=== PATIENT | female | born 1960 | race Caucasian/White ===

== ENCOUNTER → 2016-09-15 | Outpatient (CLI) | payer BC | LOC: MMGSC 11:39 | PROVIDERS: ATTEND Family Medicine | DX: E03.9 Hypothyroidism, unspecified (principal) | CPT/HCPCS: 36415; 84439; 84443 ==

== ENCOUNTER → 2016-11-08 | Outpatient (CLI) | payer BC | END | disposition home or self-care (01) | LOC: MMGSC 11:41 | PROVIDERS: ATTEND Family Medicine | DX: E03.9 Hypothyroidism, unspecified (principal) | CPT/HCPCS: 36415; 84439; 84443 ==

== ENCOUNTER → 2017-05-04 | Outpatient (CLI) | payer BC, MEDICAID ==
[2017-05-04 19:52] LABS: Basophils # (A) 0.1 k/uL (0-0.2); Basophils % (A) 1 %; CH 29.7; CHCM 33.1; Eosinophils # (A) 0.3 k/uL (0-0.7); Eosinophils % (A) 4 %; HCT 42.4 % (34.0-46.0); HDW 2.24; Luc % (Auto) 3; Lymphocytes # (A) 1.4 k/uL (1.0-4.8); Lymphocytes % (A) 19 %; MCH 29.9 pg (25.0-35.0); MCHC 33.1 g/dL (31.0-37.0); MCV 90.2 fL (80.0-100.0); Mean Platelet Volume 9.2; Monocytes # (A) 0.6 k/uL (0-1.0); Monocytes % (A) 7 %; Neutrophils % (A) 67 %; RDW 13.8 % (11.5-15.5); WBC 7.5 k/uL (3.8-10.6); WBC (Perox) 7.64
[2017-05-04 20:30] LABS: ALT 42 U/L (9-52); AST 38 U/L (14-36); Alkaline Phosphatase 61 U/L (38-126); Anion Gap 6 mmol/L; Blood Urea Nitrogen 23 mg/dL (7-17); Calcium 9.7 mg/dL (8.4-10.2); Carbon Dioxide 29 mmol/L (22-30); Chloride 104 mmol/L (98-107); Cholesterol 224 mg/dL (<200); Glucose 77 mg/dL (74-99); HDL Cholesterol 73 mg/dL (40-60); Non-African American GFR(MDRD) >60 (>60 ml/min/1.73 sqM); Potassium 4.4 mmol/L (3.5-5.1); Sodium 139 mmol/L (137-145); Total Bilirubin 0.3 mg/dL (0.2-1.3); Total Protein 6.9 g/dL (6.3-8.2)
== END ==
LOC: MMGSC 15:17
PROVIDERS: ATTEND Family Medicine
DX: E03.9 Hypothyroidism, unspecified (principal)
CPT/HCPCS: 36415; 80053; 80061; 84439; 84443; 85025

== ENCOUNTER → 2017-06-28 | Outpatient (CLI) | payer MEDICAID ==
--- NOTE | 2017-06-29 07:53 | MM ---
Reason for exam: screening (asymptomatic). Last mammogram was performed 1 year and 3 months ago. History: Patient is postmenopausal and is nulliparous. Family history of premenopausal breast cancer in aunt at age 40. Took estrogen for 1 year beginning at age 46. Physical Findings: A clinical breast exam by your physician is recommended on an annual basis and results should be correlated with mammographic findings. MG Screening Mammo w CAD Bilateral CC and MLO view(s) were taken. Prior study comparison: March 25, 2016, bilateral MG screening mammo w CAD. September 11, 2015, left breast MG 3d diag mammo w/cad LT. There are scattered fibroglandular densities. No significant changes when compared with prior studies. ASSESSMENT: Benign, BI-RAD 2 RECOMMENDATION: Routine screening mammogram of both breasts in 1 year.
== END | disposition home or self-care (01) ==
LOC: RADMAMWWP 06:57
PROVIDERS: ATTEND Family Medicine
DX: Z12.31 Encounter for screening mammogram for malignant neoplasm of breast (principal)
CPT/HCPCS: 77067

== ENCOUNTER → 2017-07-06 | Outpatient (CLI) | payer MEDICAID ==
[2017-07-07 01:08] LABS: Hepatitis A Antibody IgM Non-Reactive (Non-Reactive); Hepatitis B Core IgM Non-Reactive (Non-Reactive)
[2017-07-07 02:09] LABS: HIV AB P24 Non-Reactive (Non-Reactive); HIV P24 AG Non-Reactive (Non-Reactive)
[2017-07-09 09:18] LABS: C. trachomatis,PCR Negative (Neg,Equiv); Chlamydia trachomatis Source Vagina; N. gonorrhoeae,PCR Negative (Neg,Equiv); Neisseria Source Vagina
== END | disposition home or self-care (01) ==
LOC: MMGSC 14:46
PROVIDERS: ATTEND Family Medicine
DX: N39.0 Urinary tract infection, site not specified (principal); Z20.2 Contact with and (suspected) exposure to infections with a predominantly sexual mode of transmission
CPT/HCPCS: 36415; 80074; 86780; 87070; 87086; 87205; 87390; 87491; 87591

== ENCOUNTER → 2018-09-13 | Outpatient (CLI) | payer MEDICAID ==
--- NOTE | 2018-09-14 11:40 | MM ---
Reason for exam: screening (asymptomatic). Last mammogram was performed 1 year and 3 months ago. History: Patient is postmenopausal and is nulliparous. Family history of premenopausal breast cancer in aunt at age 40. Took estrogen for 1 year beginning at age 46. Physical Findings: A clinical breast exam by your physician is recommended on an annual basis and results should be correlated with mammographic findings. MG Screening Mammo w CAD Bilateral CC and MLO view(s) were taken. Prior study comparison: June 28, 2017, bilateral MG screening mammo w CAD. March 25, 2016, bilateral MG screening mammo w CAD. The breast tissue is heterogeneously dense. This may lower the sensitivity of mammography. Stable benign calcifications. There is no discrete abnormality. No significant changes when compared with prior studies. ASSESSMENT: Benign, BI-RAD 2 RECOMMENDATION: Routine screening mammogram of both breasts in 1 year.
== END ==
LOC: RADMAMWWP 08:13
PROVIDERS: ATTEND Family Medicine
DX: Z12.31 Encounter for screening mammogram for malignant neoplasm of breast (principal)
CPT/HCPCS: 77067

== ENCOUNTER → 2018-10-19 | Outpatient (CLI) | payer MEDICAID ==
--- NOTE | 2018-10-19 08:47 | MR ---
EXAMINATION TYPE: MR lumbar spine wo con DATE OF EXAM: 10/19/2018 COMPARISON: None HISTORY: Low back pain TECHNIQUE: Multiplanar, multisequence images of the lumbar spine were acquired. L1-L2: There is facet arthropathy change present causing some minimal posterior mass effect on the th ecal sac greater on the left. Circumferential extension of endplate disc complex results in left-side d foraminal encroachment greater than right. There is mild central stenosis. L2-L3: Posterior broad-based disc bulge causes mild anterior mass effect on the thecal sac. Facet art hropathy with hypertrophy ligamentum flavum causes some posterior lateral mass effect on the thecal s ac, circumferential extension of endplate disc complex encroaches on the neural foramen greater on th e left likely contributed by the spinal curvature. L3-L4: Posterior broad-based disc bulge causes slight anterior mass effect on the thecal sac. There i s facet arthropathy with hypertrophy of ligamentum flavum causing some minimal posterior lateral mass effect on the thecal sac. No significant foraminal encroachment or central stenosis. L4-L5: Facet arthropathy with hypertrophy of the ligamentum flavum combined with circumferential post erior extension endplate disc complex results in a trefoil appearance of the thecal sac. Lateral exte nsion endplate disc complex towards the right causes foraminal encroachment. No significant central s tenosis. L5-S1: Circumferential extension of endplate disc complex towards the right causes some foraminal enc roachment greater than the left, suspect there is a lateral disc protrusion towards the right, circum ferential posterior extension endplate disc complex causes only minimal anterior mass effect on the t hecal sac. No significant central stenosis. There is some facet arthropathy with hypertrophy ligament um flavum causing some posterior lateral mass effect on the thecal sac. Lumbar segments are intact. No paraspinal masses are identified. Conus medullaris has a normal appe arance. Lumbar vertebral bodies show preserved height, there is multilevel spondylosis with endplate discogenic marrow signal change, multilevel loss of disc height and signal especially L1-2 and to les ser extent L2-3, L4-5 and L5-S1. There is a scoliotic curvature present. IMPRESSION: Degenerative disc disease, facet arthropathy, scoliosis, multilevel foraminal encroachment as describ ed.
== END | disposition home or self-care (01) ==
LOC: RADMRIMAIN 06:40
PROVIDERS: ATTEND Orthopaedic Surgery
DX: M48.061 Spinal stenosis, lumbar region without neurogenic claudication (principal); M51.36 Other intervertebral disc degeneration, lumbar region; M46.96 Unspecified inflammatory spondylopathy, lumbar region; M41.9 Scoliosis, unspecified
CPT/HCPCS: 72148

== ENCOUNTER → 2019-05-31 | Outpatient (CLI) | payer MEDICAID ==
[2019-05-31 08:29] LABS: Basophils # (A) 0.1 k/uL (0-0.2); Basophils % (A) 1 %; Eosinophils # (A) 0.2 k/uL (0-0.7); Eosinophils % (A) 4 %; HCT 41.7 % (34.0-46.0); Lymphocytes # (A) 1.3 k/uL (1.0-4.8); Lymphocytes % (A) 24 %; MCH 30.7 pg (25.0-35.0); MCHC 33.7 g/dL (31.0-37.0); MCV 91.1 fL (80.0-100.0); Mean Platelet Volume 8.5; Monocytes # (A) 0.5 k/uL (0-1.0); Monocytes % (A) 10 %; Neutrophils # (A) 3.2 k/uL (1.3-7.7); Neutrophils % (A) 59 %; Platelet Count 215 k/uL (150-450); RBC 4.57 m/uL (3.80-5.40); RDW 12.5 % (11.5-15.5); WBC 5.4 k/uL (3.8-10.6)
[2019-05-31 08:41] LABS: Appearance,Urine Clear (Clear); Bilirubin,Urine Negative (Negative); Blood,Urine Small (Negative); Color,Urine Light Yellow; Glucose,Urine (UA) Negative (Negative); Ketones,Urine Negative (Negative); Leukocyte Esterase,Urine Negative (Negative); Mucus,Urine Rare /hpf; Nitrite,Urine Negative (Negative); PH, Urine 5.5 (5.0-8.0); Protein,Urine Negative (Negative); RBC,Urine 1 /hpf (0-5); Specific Gravity,Urine 1.005 (1.001-1.035); Urobilinogen,Urine <2.0 mg/dL (<2.0); WBC,Urine 1 /hpf (0-5)
[2019-05-31 09:50] LABS: Erythrocyte Sedimentation Rate 11 mm/hr (0-20)
[2019-05-31 16:59] LABS: Protein, Total 6.6 g/dL (6.2-8.2)
[2019-05-31 17:05] LABS: ALT 30 U/L (8-44); AST 35 U/L (13-35); African American GFR (CKD) 94.2 (60.0-200.0); Alkaline Phosphatase 70 U/L (41-126); C Reactive Protein <0.4 mg/dL (0.0-0.8); Calcium 9.3 mg/dL (8.7-10.3); Chloride 105 mmol/L (96-109); Creatine Kinase 268 U/L (26-186); Globulin 2.2 g/dL (1.6-3.3); Glucose 89 mg/dL (70-110); Non-African American GFR(CKD) 81.3 (60.0-200.0); Rheumatoid Factor, Qnt 10 IU/mL (0-15); Sodium 140 mmol/L (135-145); Total Bilirubin 0.5 mg/dL (0.3-1.2); Total Protein 6.6 g/dL (6.2-8.2); Uric Acid 5.6 mg/dL (2.9-7.7)
[2019-05-31 17:16] LABS: Hepatitis B Surface Antigen Non-Reactive (Non-Reactive); Hepatitis C IgG Antibody Non-Reactive (Non-Reactive)
[2019-05-31 19:19] LABS: Anti-DNA, DS unit <1.0 IU/mL; Anti-Smith Ab Interp NEGATIVE (NEGATIVE); Cardiolipin Ab IgG Interp NEGATIVE (NEGATIVE); Cardiolipin Ab IgM Interp NEGATIVE (NEGATIVE); Cardiolipin IgA Antibody 4.4 U/mL; Cardiolipin IgM Antibody 6.1 U/mL; Centromere Antibody <0.2 AI; Centromere Antibody Interp NEGATIVE (NEGATIVE); Cyclic Citrull Pep IgG Unit <0.5 U/mL; Cyclic Citrullinated Pep IgG NEGATIVE (NEGATIVE); DNA Double-Stranded NEGATIVE (NEGATIVE); Scleroderma SC-70 Ab <0.2 AI
[2019-06-01 10:59] LABS: Free Kappa Lt Chain Qnt, Serum 1.75 mg/dL (0.33-1.94)
[2019-06-01 11:51] LABS: Angiotensin-1 Converting Enz. 27 U/L (8-52)
[2019-06-01 13:17] LABS: HLA B27 NEGATIVE
[2019-06-03 12:29] LABS: ANA Pattern Homogeneous
[2019-06-03 12:54] LABS: APTT 40 Sec(s) (<43); DRVVT 1:1 Mix 39 Sec(s) (<44); Dilute Russell Viper Venom 45 Sec(s) (<44)
[2019-06-03 13:16] LABS: Histone Antibody 0.6 UNITS (<1.0)
[2019-06-03 13:36] LABS: Albumin 4.03 g/dL (3.80-4.90); Gamma Globulin 0.98 g/dL (0.70-1.50)
[2019-06-03 15:49] LABS: C-ANCA <1:20 Titer (<1:20)
== END | disposition home or self-care (01) ==
LOC: LABWHC1 07:35
PROVIDERS: ATTEND Internal Medicine Rheumatology
DX: M54.5 Low back pain (principal); R76.8 Other specified abnormal immunological findings in serum
CPT/HCPCS: 36415; 80053; 81001; 82088; 82164; 82306; 82550; 83516; 83883; 84165; 84439; 84443; 84550; 85025; 85613; 85652; 85730; 86038; 86039; 86140; 86147; 86160; 86162; 86200; 86225; 86235; 86255; 86334; 86431; 86803; 86812; 87340

== ENCOUNTER → 2019-12-12 | Outpatient (CLI) | payer MEDICAID ==
--- NOTE | 2019-12-16 10:16 | MM ---
Reason for exam: screening (asymptomatic). Last mammogram was performed 1 year and 3 months ago. History: Patient is postmenopausal and is nulliparous. Family history of premenopausal breast cancer in aunt at age 40. Took estrogen for 1 year beginning at age 46. Physical Findings: A clinical breast exam by your physician is recommended on an annual basis and results should be correlated with mammographic findings. MG 3D Screening Mammo W/Cad Bilateral CC and MLO view(s) were taken. Prior study comparison: September 13, 2018, bilateral MG screening mammo w CAD. June 28, 2017, bilateral MG screening mammo w CAD. The breast tissue is heterogeneously dense. This may lower the sensitivity of mammography. There is no discrete abnormality. ASSESSMENT: Negative, BI-RAD 1 RECOMMENDATION: Routine screening mammogram of both breasts in 1 year.
== END | disposition home or self-care (01) ==
LOC: RADMAMWWP 13:53
PROVIDERS: ATTEND Family Medicine
DX: Z12.31 Encounter for screening mammogram for malignant neoplasm of breast (principal)
CPT/HCPCS: 77063; 77067

== ENCOUNTER → 2020-09-10 | Outpatient (CLI) | payer MEDICAID ==
[2020-09-10 23:26] LABS: African American GFR (CKD) 93.5 (60.0-200.0); Albumin 4.6 g/dL (3.80-4.90); Albumin/Globulin Ratio 2.09 (1.60-3.17); Anion Gap 11.2 mmol/L (4.00-12.00); Calcium 9.8 mg/dL (8.7-10.3); Carbon Dioxide 26.8 mmol/L (21.6-31.8); Chol/HDL Ratio 2.88; Globulin 2.2 g/dL (1.6-3.3); LDL Cholesterol,Calculated 138.2 mg/dL (0.0-131.0); Non-African American GFR(CKD) 80.7 (60.0-200.0); Potassium 4.9 mmol/L (3.5-5.5); Total Bilirubin 0.6 mg/dL (0.2-1.2); Total Protein 6.8 g/dL (6.2-8.2); VLDL Calculation 17.8 mg/dL (5.00-40.00)
== END | disposition home or self-care (01) ==
LOC: LABWHC1 07:34
PROVIDERS: ATTEND Family Medicine
DX: I10 Essential (primary) hypertension (principal); E55.9 Vitamin D deficiency, unspecified; E03.9 Hypothyroidism, unspecified
CPT/HCPCS: 36415; 80053; 80061; 82306; 84439; 84443

== ENCOUNTER → 2020-12-18 | Outpatient (CLI) | payer MEDICAID | END | disposition home or self-care (01) | LOC: LABWHC1 08:16 | PROVIDERS: ATTEND Family Medicine | DX: E55.9 Vitamin D deficiency, unspecified (principal) | CPT/HCPCS: 36415; 82306 ==

== ENCOUNTER → 2020-12-22 | Outpatient (CLI) | payer MEDICAID ==
--- NOTE | 2020-12-23 15:02 | MM ---
Reason for exam: screening (asymptomatic). Last mammogram was performed 1 year ago. History: Patient is postmenopausal and is nulliparous. Family history of premenopausal breast cancer in aunt at age 40. Took estrogen for 1 year beginning at age 46. Physical Findings: A clinical breast exam by your physician is recommended on an annual basis and results should be correlated with mammographic findings. MG 3D Screening Mammo W/Cad Bilateral CC and MLO view(s) were taken. Prior study comparison: December 12, 2019, bilateral MG 3d screening mammo w/cad. September 13, 2018, bilateral MG screening mammo w CAD. The breast tissue is heterogeneously dense. This may lower the sensitivity of mammography. There is a new linear opacity anterior left lower inner quadrant. This finding is changed when compared with previous exams. ASSESSMENT: Incomplete: need additional imaging evaluation, BI-RAD 0 RECOMMENDATION: Special view mammogram of the left breast. If lesion persists on supplemental views, image directed ultrasound is recommended. [facility] will attempt to contact patient to return for supplemental views and ultrasound if indicated.
== END | disposition home or self-care (01) ==
LOC: RADMAMWWP 07:15
PROVIDERS: ATTEND Family Medicine
DX: Z12.31 Encounter for screening mammogram for malignant neoplasm of breast (principal); Z78.0 Asymptomatic menopausal state; Z79.899 Other long term (current) drug therapy; Z80.3 Family history of malignant neoplasm of breast
CPT/HCPCS: 77063; 77067

== ENCOUNTER → 2021-01-15 | Outpatient (CLI) | payer MEDICAID ==
--- NOTE | 2021-01-15 15:00 | MM ---
Reason for exam: additional evaluation requested from abnormal screening. Last mammogram was performed 1 month ago. History: Patient is postmenopausal and is nulliparous. Family history of premenopausal breast cancer in aunt at age 40. Took estrogen for 1 year beginning at age 46. Physical Findings: Nurse did not find any significant physical abnormalities on exam. MG 3D Work Up W/Cad LT Spot compression CC, spot compression MLO, and LM view(s) were taken of the left breast. Prior study comparison: December 22, 2020, bilateral MG 3d screening mammo w/cad. December 12, 2019, bilateral MG 3d screening mammo w/cad. There are scattered fibroglandular densities. There is linear asymmetry in he medial left breast not significantly changed since 2019 and diagnostic mammogram recommended in 12 months to demonstrate 2 years stability. These results were verbally communicated with the patient and result sheet given to the patient on 01/15/21. ASSESSMENT: Probably benign, BI-RAD 3 RECOMMENDATION: Follow-up diagnostic mammogram of both breasts in 1 year.
== END | disposition home or self-care (01) ==
LOC: RADMAMWWP 13:37
PROVIDERS: ATTEND Family Medicine
DX: R92.8 Other abnormal and inconclusive findings on diagnostic imaging of breast (principal); Z78.0 Asymptomatic menopausal state; Z80.3 Family history of malignant neoplasm of breast
CPT/HCPCS: 77061; 77065

== ENCOUNTER → 2021-12-13 | Outpatient (CLI) | payer MEDICAID ==
[2021-12-13 11:12] LABS: ALT 31 U/L (8-44); AST 36 U/L (13-35); African American GFR (CKD) 91.5 (60.0-200.0); Albumin 4.5 g/dL (3.8-4.9); Albumin/Globulin Ratio 1.67 (1.60-3.17); Alkaline Phosphatase 64 U/L (41-126); Blood Urea Nitrogen 13.2 mg/dL (9.0-27.0); Calcium 9.6 mg/dL (8.7-10.3); Carbon Dioxide 28.2 mmol/L (20.0-27.5); Chloride 102 mmol/L (96-109); Chol/HDL Ratio 2.68 Ratio; Globulin 2.7 g/dL (1.6-3.3); Glucose 101 mg/dL (70-110); LDL Cholesterol,Calculated 140.1 mg/dL (0.0-131.0); Potassium 4.6 mmol/L (3.5-5.5); Sodium 140 mmol/L (135-145); Total Protein 7.3 g/dL (6.2-8.2)
== END | disposition home or self-care (01) ==
LOC: LABWHC1 07:37
PROVIDERS: ATTEND Family Medicine
DX: E55.9 Vitamin D deficiency, unspecified (principal); I26.90 Septic pulmonary embolism without acute cor pulmonale
CPT/HCPCS: 36415; 80053; 80061; 82306; 84439; 84443

== ENCOUNTER → 2022-02-01 | Outpatient (CLI) | payer MEDICAID ==
[2022-02-01 19:08] LABS: T4, Free (Free Thyroxine) 1.14 ng/dL (0.800-1.800)
== END | disposition home or self-care (01) ==
LOC: LABWHC1 13:06
PROVIDERS: ATTEND Family Medicine
DX: E03.9 Hypothyroidism, unspecified (principal)
CPT/HCPCS: 36415; 84439; 84443

== ENCOUNTER → 2023-02-21 | Outpatient (CLI) | payer MEDICAID ==
--- NOTE | 2023-02-23 07:34 | MM ---
Reason for Exam: Screening (asymptomatic). Last screening mammogram was performed 12 month(s) ago. Patient History: Menarche at age 12. Patient has no children. Postmenopausal. Estrogen for 1 year from age 46 until age 47. Paternal aunt had breast cancer, age 40. Risk Values: Kira 5 year model risk: 1.7%. NCI Lifetime model risk: 7.7%. Prior Study Comparison: 12/22/2020 Bilateral Screening Mammogram, LOC[facility]IN [facility]. 01/15/2021 Left Diagnostic Mammogram, [facility]. 02/14/2022 Bilateral MG 3D diag mammo w/cad [facility], [facility]. Tissue Density: There are scattered fibroglandular densities. Findings: Analyzed By CAD. Unchanged focal asymmetry upper-outer quadrant left breast. There is no suspicious group of microcalcifications or new suspicious mass in either breast. Overall Assessment: Negative, BI-RAD 1 Management: Screening Mammogram of both breasts in 1 year. . Patient should continue monthly self-breast exams. A clinical breast exam by your physician is recommended on an annual basis. This exam should not preclude additional follow-up of suspicious palpable abnormalities. Note on Kira scores and lifetime risk: 1. A Kira score greater than 3% is considered moderate risk. If this is the case, consider specialist referral to assess eligibility for a risk reducing agent. 2. If overall lifetime risk for the development of breast cancer is 20% or higher, the patient may qualify for future screening with alternating mammogram and breast MRI. Electronically signed and approved by: Werner Costello M.D. Radiologist
== END | disposition home or self-care (01) ==
LOC: RADMAMWWP 06:50
PROVIDERS: ATTEND Family Medicine
DX: Z12.31 Encounter for screening mammogram for malignant neoplasm of breast (principal); Z78.0 Asymptomatic menopausal state; Z80.3 Family history of malignant neoplasm of breast
CPT/HCPCS: 77063; 77067

== ENCOUNTER → 2023-10-07 | Outpatient (CLI) | payer MEDICAID ==
[2023-10-07 13:39] LABS: Basophils # (A) 0.06 X 10*3/uL (0.00-0.10); Basophils % (A) 1.2 %; Eosinophils % (A) 3.9 %; HCT 42.9 % (37.2-46.3); HGB 14.1 g/dL (12.0-15.0); Lymphocytes # (A) 1.04 X 10*3/uL (0.90-5.00); Lymphocytes % (A) 20.2 %; MCH 29.8 pg (27.0-32.0); MCHC 32.9 g/dL (32.0-37.0); MCV 90.7 FL (80.0-97.0); Mean Platelet Volume 10.8 FL (9.5-12.2); Monocytes # (A) 0.85 X 10*3/uL (0.20-1.00); Monocytes % (A) 16.5 %; NRBC Per 100 WBC 0 X 10*3/uL (0.00-0.01); Platelet Count 225 X 10*3/uL (140-440); RBC 4.73 X 10*6/uL (4.10-5.20); RDW 12.7 % (11.5-14.5); WBC 5.16 X 10*3/uL (4.50-10.00)
[2023-10-07 13:58] LABS: ALT 32 U/L (8-44); AST 33 U/L (13-35); Albumin 4.6 g/dL (3.8-4.9); Albumin/Globulin Ratio 1.92 Ratio (1.60-3.17); Alkaline Phosphatase 59 U/L (41-126); BUN/Creat Ratio 17.71 Ratio (12.00-20.00); Blood Urea Nitrogen 12.4 mg/dL (9.0-27.0); Calcium 9.3 mg/dL (8.7-10.3); Chloride 104 mmol/L (96-109); Chol/HDL Ratio 2.65 Ratio; Globulin 2.4 g/dL (1.6-3.3); Glucose 102 mg/dL (70-110); LDL Cholesterol,Calculated 142.9 mg/dL (0.0-131.0); Potassium 4.4 mmol/L (3.5-5.5); Sodium 142 mmol/L (135-145); T4, Free (Free Thyroxine) 1.18 ng/dL (0.80-1.80); Total Bilirubin 0.5 mg/dL (0.3-1.2)
== END | disposition home or self-care (01) ==
LOC: LABWHC1 09:04
PROVIDERS: ATTEND Family Medicine
DX: I26.99 Other pulmonary embolism without acute cor pulmonale (principal)
CPT/HCPCS: 36415; 80053; 80061; 84439; 84443; 85025

== ENCOUNTER → 2024-04-23 | Outpatient (CLI) | payer MEDICAID ==
--- NOTE | 2024-04-23 11:01 | MM ---
Reason for Exam: Screening (asymptomatic). Last mammogram was performed 1 year(s) and 2 month(s) ago. Patient History: Menarche at age 12. Patient has no children. Postmenopausal. Estrogen for 1 year from age 46 until age 47. Paternal aunt had breast cancer, age 40. Risk Values: Kira 5 year model risk: 1.7%. NCI Lifetime model risk: 7.4%. Prior Study Comparison: 01/15/2021 Left Diagnostic Mammogram, [facility]. 02/14/2022 Bilateral MG 3D diag mammo w/cad [facility], [facility]. 02/21/2023 Bilateral MG 3D screening mammo w/cad, [facility]. Tissue Density: There are scattered areas of fibroglandular density. Findings: Analyzed By CAD. Areas of asymmetric density are unchanged. There is no suspicious group of microcalcifications or new suspicious mass in either breast. Overall Assessment: Benign, BI-RAD 2 Management: Screening Mammogram of both breasts in 1 year. . Patient should continue monthly self-breast exams. A clinical breast exam by your physician is recommended on an annual basis. This exam should not preclude additional follow-up of suspicious palpable abnormalities. Note on Kira scores and lifetime risk: 1. A Kira score greater than 3% is considered moderate risk. If this is the case, consider specialist referral to assess eligibility for a risk reducing agent. 2. If overall lifetime risk for the development of breast cancer is 20% or higher, the patient may qualify for future screening with alternating mammogram and breast MRI. [facility], , 04/23/2024 10:59 AM. Electronically signed and approved by: Werner Costello M.D. Radiologist
== END | disposition home or self-care (01) ==
LOC: RADMAMWWP 06:53
PROVIDERS: ATTEND Family Medicine
CPT/HCPCS: 77063; 77067

== ENCOUNTER → 2024-09-23 | Outpatient (CLI) | payer MEDICAID ==
[2024-09-23 10:35] LABS: Basophils # (A) 0.05 X 10*3/uL (0.00-0.10); Basophils % (A) 0.9 %; Eosinophils # (A) 0.23 X 10*3/uL (0.04-0.35); Eosinophils % (A) 4.3 %; HCT 42.6 % (37.2-46.3); HGB 14.4 g/dL (12.0-15.0); Lymphocytes # (A) 1.43 X 10*3/uL (0.90-5.00); Lymphocytes % (A) 26.9 %; MCH 30.8 pg (27.0-32.0); MCHC 33.8 g/dL (32.0-37.0); MCV 91.2 FL (80.0-97.0); Mean Platelet Volume 11.1 FL (9.5-12.2); Monocytes # (A) 0.89 X 10*3/uL (0.20-1.00); Monocytes % (A) 16.8 %; NRBC Per 100 WBC 0 X 10*3/uL (0.00-0.01); Neutrophils % (A) 50.9 %; Platelet Count 214 X 10*3/uL (140-440); RBC 4.67 X 10*6/uL (4.10-5.20); RDW 12.4 % (11.5-14.5); WBC 5.31 X 10*3/uL (4.50-10.00)
[2024-09-23 10:45] LABS: ALT 27 U/L (8-44); AST 30 U/L (13-35); Albumin 4.3 g/dL (3.8-4.9); Albumin/Globulin Ratio 1.72 Ratio (1.60-3.17); Alkaline Phosphatase 56 U/L (41-126); BUN/Creat Ratio 14.12 Ratio (12.00-20.00); Blood Urea Nitrogen 11.3 mg/dL (9.0-27.0); Calcium 9.4 mg/dL (8.7-10.3); Carbon Dioxide 26.1 mmol/L (21.6-31.8); Chloride 102 mmol/L (96-109); Chol/HDL Ratio 2.76 Ratio; Globulin 2.5 g/dL (1.6-3.3); Glucose 96 mg/dL (70-110); LDL Cholesterol,Calculated 113.3 mg/dL (0.0-131.0); Potassium 4.2 mmol/L (3.5-5.5); Sodium 138 mmol/L (135-145); Total Bilirubin 0.5 mg/dL (0.3-1.2); Total Protein 6.8 g/dL (6.2-8.2)
[2024-09-23 11:30] LABS: INR 1.04 sec (0.93-1.11); Prothrombin Time 11.6 sec (9.9-11.9)
[2024-09-23 11:43] LABS: T4, Free (Free Thyroxine) 1.35 ng/dL (0.80-1.80)
== END | disposition home or self-care (01) ==
LOC: LABPAT 07:37
PROVIDERS: ATTEND Orthopaedic Surgery
DX: Z01.812 Encounter for preprocedural laboratory examination (principal); Z22.322 Carrier or suspected carrier of Methicillin resistant Staphylococcus aureus; M16.12 Unilateral primary osteoarthritis, left hip
CPT/HCPCS: 80053; 80061; 84439; 84443; 85025; 85610; 86850; 86900; 86901; 87070

== ENCOUNTER 2024-10-01 05:53 | Day surgery (SDC) | payer MEDICAID ==
--- NOTE | 2024-09-30 08:33 | P.HPOR ---
History of Present Illness H&P Date: 09/30/24 Chief Complaint: Left hip pain The patient is a 63-year-old female who presents with progressive left hip pain for the past year worsening recently. She notes anterior/ lateral pain with weightbearing activities. She is having a difficult time getting around. She notes has been limping. She tried medications without much relief. Review of Systems Per HPI Past Medical History Past Medical History: Hypertension, Osteoarthritis (OA), Thyroid Disorder Additional Past Medical History / Comment(s): Raynaud's History of Any Multi-Drug Resistant Organisms: None Reported Past Surgical History: Adenoidectomy, Orthopedic Surgery, Tonsillectomy Additional Past Surgical History / Comment(s): BILATERAL CATARACT SURGERY, EYE SURGERY A CHILD , BILT FOOT SURGERY, colonoscopy Past Anesthesia/Blood Transfusion Reactions: No Reported Reaction Smoking Status: Never smoker, Second hand smoke exposure - Past Family History Mother Family Medical History: No Reported History Father Family Medical History: Cancer Additional Family Medical History / Comment(s): LUNG CANCER Medications and Allergies Home Medications Medication Instructions Recorded Confirmed Type Cholecalciferol [Vitamin D3 (25 25 mcg PO DAILY 02/08/22 09/20/24 History Mcg = 1000 Iu)] Ibuprofen [Motrin] 600 mg PO Q8HR PRN 02/08/22 09/20/24 History Levothyroxine Sodium 88 mcg PO DAILY 02/08/22 09/20/24 History Multivitamins, Thera [Multivitamin 1 tab PO DAILY 02/08/22 09/20/24 History (formulary)] amLODIPine [Norvasc] 5 mg PO DAILY 02/08/22 09/20/24 History Brimonidine Tartrate [Lumify] 1 drop BOTH EYES DAILY 09/20/24 09/20/24 History Carboxymethylcellulose Sodium 1 drop BOTH EYES DIRECTED PRN 09/20/24 09/20/24 History [Refresh Tears] hydrOXYzine HCL [Atarax] 50 mg PO HS 09/20/24 09/20/24 History traMADol HCL 50 mg PO BID PRN 09/20/24 09/20/24 History Allergies Allergy/AdvReac Type Severity Reaction Status Date / Time Sulfa (Sulfonamide Allergy Unknown Verified 09/20/24 08:46 Antibiotics) Childhood Physical Examination - Hip left Gait: antalgic Tenderness with palpation: anterior Pain with motion: internal rotation and hip flexion ROM: flexion: 80 degrees ROM: internal rotation: 0 degrees (With pain) ROM: external rotation: 60 degrees Crepitus with motion: Yes Strength: extension: 5/5 Strength: flexion: 5/5 Strength: abduction: 5/5 Tests: impingement tests: positive Results The patient is a well-developed well-nourished female approximately 5 foot 4, 160 pounds of mesomorphic habitus. HEENT exam is nonfocal, neck is supple. She has painful passive motion of her left hip. Clinically she has 1 cm shortening compared to the right. She has a mildly antalgic gait pattern. Her distal neurovascular exam appears intact in the left lower extremity. - Diagnostic results Hip x-ray: image reviewed (X-rays of the left hip obtained the office show severe osteoarthrosis with [id number] changes and subchondral sclerosis.) Assessment and Plan Assessment: Left hip severe osteoarthrosis Plan: I talked the patient length regarding her condition and at this point she is quite symptomatic having pain and stiffness related to her left hip osteoarthrosis despite conservative measures. After a thorough discussion she opts proceed with surgery. We will plan to proceed with a left total hip arthroplasty utilizing an anterior approach. Risks and benefits were discussed at length in layman's terms. We will institute DVT prophylaxis postoperatively.
[~2024-10-01 05:53] MED LIST: TRANEXAMIC 1,000 MG/100ML-NACL 1,000 MG in SALINE 1 100ML.BAG IVPB PRN
[2024-10-01] MEDS: IV FLUID CONTINUATION 1,000 ML IV ONE (06:16)
[2024-10-01] MEDS: MELOXICAM 7.5 MG TAB PO PRN (06:49)
[2024-10-01] MEDS: ONDANSETRON 4 MG/2 ML VIAL IVP ONE (06:49)
[2024-10-01] MEDS: ACETAMINOPHEN TAB 500 MG TAB PO PRN (06:49)
[2024-10-01] MEDS: DEXAMETHASONE SOD PHOSPHATE 4 MG/ML 1 ML VIAL IV ONE (06:49)
[2024-10-01] MEDS: MIDAZOLAM 2 MG/2 ML VIAL IV ONE (06:57)
[2024-10-01] MEDS ORDERED: ROPIVACAINE 5 MG/ML 30 ML VIAL ONE (07:25)
[2024-10-01] MEDS ORDERED: PHENYLEPHRINE-0.9% NACL SYG 1,000 MCG/10 ML SYRINGE ONE (07:25)
[2024-10-01] MEDS ORDERED: PROPOFOL 10 MG/ML 20 ML VIAL IV ONE (07:25)
[2024-10-01] MEDS ORDERED: DEXAMETHASONE SOD PHOSPHATE 4 MG/ML 1 ML VIAL ONE (07:25)
[2024-10-01] MEDS ORDERED: TRANEXAMIC 1,000 MG/100ML-NACL PREMIX BAG ONE (07:25)
[2024-10-01] MEDS ORDERED: ePHEDrine 50 MG/ML 1 ML VIAL ONE (07:25)
[2024-10-01] MEDS ORDERED: MIDAZOLAM 2 MG/2 ML VIAL ONE (07:25)
--- NOTE | 2024-10-01 07:25 | P.ANPRN ---
Procedure Note - Anesthesia - Nerve Block Performed Left Mitch Single Time Out Performed: Yes ([id number]) Date of Procedure: 10/01/24 Procedure Start Time: : Procedure Stop Time: 07:02 Location of Patient: PreOp Indication: Acute Post-Operative Pain, Requested by Surgeon Sedation Type: Sedate with meaningful contact maintained Preparation: Sterile Prep Position: Supine Catheter: None Needle Types: Pajunk Needle Gauge: 21 Ultrasound used to visualize needle placement: Yes Ultrasound used to observe medication spread: Yes Injectate: 0.5% Ropivacaine (see comment for volume) Blood Aspirated: No Pain Paresthesia on Injection Noted: No Resistance on Injection: Normal Image Stored and Saved: Yes Events: Uneventful and Well Tolerated (21 mL of block solution containing 20 mL of 0.5% ropivacaine mixed with 4 mg of dexamethasone.)
[2024-10-01] MEDS: ceFAZolin 2 GM in DEXTROSE 5% IN WATER 50 ML IVPB PRN (07:30)
[2024-10-01] MEDS: ceFAZolin 1,000 MG in SODIUM CHLORIDE 0.9% 1,000 ML IRRIGATION ONE (08:07)
[2024-10-01] MEDS: LACTATED RINGERS 1,000 ML IV ONE (09:14)
[2024-10-01] MEDS ORDERED: MAGNESIUM HYDROXIDE 2,400 MG/30 ML CUP PO PRN (09:23)
[2024-10-01] MEDS ORDERED: hydrOXYzine pamoate 25 MG CAP PO PRN (09:23)
[2024-10-01] MEDS ORDERED: ONDANSETRON 4 MG/2 ML VIAL IVP PRN (09:23)
[2024-10-01] MEDS ORDERED: traMADol 50 MG TAB PO PRN (09:23)
[2024-10-01] MEDS ORDERED: NALOXONE 0.4 MG/ML 1 ML VIAL IV PRN (09:23)
[2024-10-01] MEDS ORDERED: HYDROmorphone 1 MG/ML 1 ML SYRINGE IVP PRN (09:23)
--- NOTE | 2024-10-01 09:27 | XR ---
Fluoroscopy INDICATION: Left hip replacement FINDINGS: Fluoroscopy time: 34.7 seconds. Total dose area product (DAP) in uGy*m?, mGy*cm? (or similar): 1.4995 Images obtained: 5. Images document the procedure. IMPRESSION: 1. Documentation of fluoroscopy. [facility], , 10/01/2024 9:25 AM
--- NOTE | 2024-10-01 09:29 | FL ---
Fluoroscopy INDICATION: Pain FINDINGS: Fluoroscopy time: 34.7 seconds. Total dose area product (DAP) in uGy*m?, mGy*cm? (or similar): 1. 10/02/1994 Images obtained: 0. Images document the procedure. IMPRESSION: 1. Documentation of fluoroscopy. [facility], , 10/01/2024 9:26 AM
--- NOTE | 2024-10-01 09:40 | P.OP ---
Date of Procedure: 10/01/24 Preoperative Diagnosis: Left hip severe osteoarthrosis Postoperative Diagnosis: Same Procedure(s) Performed: Left total hip arthroplastypress-fitanterior approach Implants: DePuy Corail size 11-125 degree standard collared press-fit femoral stem, 36+5 ceramic femoral head, 54 mm [place] acetabular shell with neutral polyethylene liner. Anesthesia: spinal Surgeon: Jerry Aguilar Sap Architect #1: Malachi Lackey Estimated Blood Loss (ml): 150 Pathology: none sent Condition: stable Disposition: PACU Indications for Procedure: The patient is a 63-year-old female who presents with progressive left hip pain secondary to osteoarthrosis despite conservative measures. A discussion of the risks and benefits of operative intervention versus continued conservative measures was made with the patient. She opted to proceed with surgery. Operative risks include infection, neurovascular injury, development of blood clots, fracture, leg length discrepancy, possible instability, possible component loosening/failure and possible need for subsequent procedures was discussed. Informed consent was obtained. Operative Findings: As below Description of Procedure: The patient was brought to the operating room, and after induction of spinal anesthesia was placed supine on the Meagan table. Positioning was checked with fluoroscopy. The left hip was then prepped and draped in a normal fashion. A 12 cm incision was then made starting 2 fingerbreadths distal and 3 finger breaths posterior to the ASIS in line with the proximal femur. The skin was incised sharply. Subcutaneous tissues were divided sharply. Electrocautery was used for hemostasis. The fascia was split in line with skin incision. The interval between the sartorius and tensor fascia judith was then bluntly developed. The posterior fascia was opened with electrocautery. The lateral circumflex vessels were identified and cauterized prior to sectioning. A retractor was placed along the superior femoral neck as well as the anterior acetabular rim. A wide capsulotomy was performed. The neck cut was then made at a 45 angle to the shaft approximately 1 1/2 cm above the level of the lesser trochanter. The head was extracted. Attention was then paid towards preparing the acetabulum. Anterior and posterior retractors were placed. The remaining capsular labral tissue sharply debrided clearly defining the acetabular margins. I began reaming with a 49 mm reamer taking care to initially medialize then reaming at 45 of abduction and 20 of anteversion. Sequential reaming is performed up to 53 mm. A trial 54 mm acetabular shell was inserted in the same orientation and was fully seated. There was good rim fit and stability. Positioning was checked with fluoroscopy. The final 54 mm durga tabular shell was inserted again at 45 of abduction and 20 of anteversion. This was fully seated. There was good rim fit and stability. Again fluoroscopy was used to check the adequacy of placement. A neutral polyethylene liner was gently impacted. Care was taken to avoid any soft tissue interposition. Pulsatile lavage was utilized. Attention was then paid towards preparing the proximal femur. The central region was cleared of soft tissue. A canal finder was used to find the femoral canal. Sequential broaching was performed up to size 11 taking care to lateralize proximally. A calcar mill was used to fashion the medial calcar. There was good rotational stability. A 125 degree standard neck along with a 36 mm +5 head was placed. The hip was gently reduced. Fluoroscopy was used to check the adequacy of positioning along with leg lengths. I felt both were good. The hip was gently dislocated. The trial components were removed. The final size 11-125 degree collared standard press- fit femoral stem was inserted parallel to the posterior cortex. This was fully seated and there was good rotational stability. A 36 mm +5 ceramic head was placed. This was gently impacted. The hip was then gently reduced. Final fluoroscopic view showed adequate placement implant along with judaism of leg length. Stability was checked with 80 of external rotation and 60 of extension of the right hip. The wound was irrigated with sterile lavage. The fascia was closed with running 0 Vicryl suture. There was minimal drainage therefore a deep drain was not placed. The second dose of IV TXA was given. The subcutaneous tissues were reapproximated interrupted 2-0 Vicryl sutures. The skin was reapproximated with 3-0 subcuticular strata fix suture. Skin tape and adhesive was applied. A sterile dressing was applied. The patient was then awoken from sedation and transferred to recovery room in good condition. Blood loss was estimated at 150 mL. No complications were incurred. Sponge and needle counts were correct at the end of the case. Hector INMNA assisted during the major components is case to include exposure, bone resection, implantation, and closure.
[2024-10-01] MEDS: HYDROmorphone 0.5 MG/0.5 ML SYRINGE IVP PRN ×2 (09:54→17:24)
--- NOTE | 2024-10-01 10:22 | XR ---
EXAMINATION TYPE: XR Hip Limited LT DATE OF EXAM: 10/01/2024 10:00 AM COMPARISON: None. CLINICAL INDICATION: Female, 63 years old with history of Status post hip surgery, assess surgical al ignment, pain TECHNIQUE: AP view(s) obtained. FINDINGS: There is placement of a left hip prosthesis. No acute fractures are evident. Postsurgical soft tissue changes are evident. IMPRESSION: 1. No acute fracture post left hip replacement [facility], , 10/01/2024 10:20 AM
[2024-10-01] MEDS: LACTATED RINGERS 1,000 ML IV SCH (10:59)
--- NOTE | 2024-10-01 12:27 | P.CONS ---
History of Present Illness - Reason for Consult Consult date: 10/01/24 Medical Management Requesting physician: Jerry Aguilar - History of Present Illness History of Presenting Illness: Patient is a very pleasant 63-year-old female with a past medical history of hypertension, hypothyroidism, Raynaud's disease, and osteoarthritis. She is currently hospitalized under orthopedic surgery team status post elective left total hip arthroplasty. Surgical procedure was completed by Dr. Aguilar secondary to severe osteoarthrosis of left hip. We were consulted for medical management throughout hospitalization. Patient seen and fully evaluated in room 457 shortly after arriving to room from postop. Patient currently reports pain is controlled only experiencing a mild burning sensation in left hip incision site. She denies having any headache, li ghtheadedness, dizziness, chest pain, palpitations, shortness of breath, postoperative nausea or vomiting, or experiencing any numbness/tingling/weakness in her extremities. She reports initially right after surgery she did have some numbness in her left foot but that has fully resolved. Patient wiggling toes and moving difficulties and reports sensation fully intact. She does report that she has not yet urinated since completion of surgical procedure, but also states she just started drinking water and eating. Review of systems: Pertinent positives and negatives as discussed in HPI, a complete review of systems was performed and all other systems are negative. Physical exam: Vital signs reviewed and stable. General: Nontoxic, no distress and appears stated age. Derm: Skin warm and dry, normal coloration for ethnicity. Head: Atraumatic, normocephalic and symmetric. Eyes: EOM's intact, no lid lag, and anicteric sclera Mouth: no lip lesions, mucus membranes moist Cardiovascular: regular rate and rhythm with normal S1S2, no murmur, positive posterior tibial pulses bilaterally, and cap refill < 2 seconds. Lungs: Respirations even, regular, and unlabored on room air. Lungs CTA bilaterally, no rhonchi, no rales, no wheezing, and no accessory muscle usage. Abdominal: soft, nontender to palpation, no guarding, no appreciable organomegaly Ext: Movement and sensation intact.. No gross muscle atrophy, no edema, no contractures. Postoperative dressing in place left lateral hip. Neuro: Speech clear, face symmetrical and CN II-XII grossly intact with no noted focal neuro deficits Psych: Alert and oriented to person, place, time, and situation. Appropriate and pleasant affect. Assessment and Plan of Care: Status post left total hip arthroplasty -Management per primary admitting orthopedic surgery team including DVT prophylaxis, pain management, wound/dressing management, weightbearing, and PT/OT. -Patient currently on DVT prophylaxis with Xarelto 10 mg daily. Hypertension -Monitor vital signs and continue daily medication regimen with amlodipine 5 mg daily. Hypothyroidism -Continue daily medication regimen with levothyroxine 88 mcg daily. History of cataracts status post removal -Continue Lumify eyedrops 1 drop both eyes daily. Data and imaging reviewed: -Vital signs reviewed. Blood pressure 110/70, heart rate 80, respiratory rate 16, temp 97.3 F, and SpO2 of 98% on room air. -Reviewed preoperative labs completed 09/23/2024. CBC showing WBC count of 5.31, hemoglobin 14.4, platelet count of 214. PT was 11.6 and INR 1.04. BMP was unremarkable with sodium 138, potassium 4.2, chloride 102, bicarb 26.1, and anion gap of 9.90 and renal function normal findings with BUN of 11.3, creatinine 0.8, GFR greater than 60. -Reviewed operative report. Documented estimated blood loss was 150 cc Thank you for allowing us to participate in the care of this pleasant patient. Do not hesitate to contact us with questions. Someone can be reached from the [facility] hospitalist group all hours of the day at [phone] or via [employer]. Patient was seen independently by Nurse Practitioner. This document was prepared using [employer] dictation software. Please allow for errors in therapist physical while rare they do occur. Joshua Norman NP rendered care for this patient independently, reviewed the findings and plan as documented in the note above and agree with plan. I did not physically speak with or examine the patient on this date. Past Medical History Past Medical History: Hypertension, Osteoarthritis (OA), Thyroid Disorder Additional Past Medical History / Comment(s): Raynaud's History of Any Multi-Drug Resistant Organisms: None Reported Past Surgical History: Adenoidectomy, Orthopedic Surgery, Tonsillectomy Additional Past Surgical History / Comment(s): BILATERAL CATARACT SURGERY, EYE SURGERY A CHILD , BILT FOOT SURGERY, colonoscopy Past Anesthesia/Blood Transfusion Reactions: No Reported Reaction Smoking Status: Never smoker, Second hand smoke exposure - Past Family History Mother Family Medical History: No Reported History Father Family Medical History: Cancer Additional Family Medical History / Comment(s): LUNG CANCER Medications and Allergies Home Medications Medication Instructions Recorded Confirmed Type Cholecalciferol [Vitamin D3 (25 25 mcg PO DAILY 02/08/22 10/01/24 History Mcg = 1000 Iu)] Ibuprofen [Motrin] 600 mg PO Q8HR PRN 02/08/22 10/01/24 History Levothyroxine Sodium 88 mcg PO DAILY 02/08/22 10/01/24 History Multivitamins, Thera [Multivitamin 1 tab PO DAILY 02/08/22 10/01/24 History (formulary)] amLODIPine [Norvasc] 5 mg PO DAILY 02/08/22 10/01/24 History Brimonidine Tartrate [Lumify] 1 drop BOTH EYES DAILY 09/20/24 10/01/24 History Carboxymethylcellulose Sodium 1 drop BOTH EYES DIRECTED PRN 09/20/24 10/01/24 History [Refresh Tears] hydrOXYzine HCL [Atarax] 50 mg PO HS 09/20/24 10/01/24 History traMADol HCL 50 mg PO BID PRN 09/20/24 10/01/24 History Allergies Allergy/AdvReac Type Severity Reaction Status Date / Time Sulfa (Sulfonamide Allergy Unknown Verified 10/01/24 06:10 Antibiotics) Childhood Physical Exam Vitals: Vital Signs Temp Pulse Pulse Resp BP Pulse Ox 10/01/24 10:32 71 16 115/72 96 10/01/24 10:15 71 16 111/67 96 10/01/24 10:02 71 16 111/61 96 10/01/24 09:45 72 16 117/64 96 10/01/24 09:30 68 16 118/64 96 10/01/24 09:28 98 F 89 12 114/55 96 10/01/24 07:07 83 16 123/61 99 10/01/24 06:21 97.7 F 80 16 139/63 99 Intake and Output 09/30/24 10/01/24 10/01/24 22:59 06:59 14:59 Intake Total 100 1051 Output Total 150 Balance 100 901 Intake: IV 100 1051 Output: Estimated Blood Loss 150 Other: Weight 71.8 kg
[2024-10-01] MEDS: HYDROcodone/APAP 5-325MG 1 EACH TAB PO PRN (12:58)
[2024-10-01] MEDS ORDERED: HYDROmorphone 2 MG/ML 1 ML SYRINGE IVP PRN (14:27)
[2024-10-01] MEDS: ceFAZolin 2 GM in DEXTROSE 5% IN WATER 50 ML IVPB SCH (16:43)
[2024-10-01] MEDS: hydrOXYzine HCL 25 MG TAB PO SCH (21:31)
[2024-10-01] MEDS: SENNOSIDES-DOCUSATE SODIUM 1 EACH TAB PO SCH (21:31)
[2024-10-02] MEDS: LACTATED RINGERS 1,000 ML IV ONE (02:48)
[2024-10-02] MEDS: LEVOTHYROXINE 88 MCG TAB PO SCH (05:52)
[2024-10-02 07:48] VITALS: BP 99/62; PULSE 84; RESP 18; TEMP 98.2
[2024-10-02] MEDS: HYDROcodone/APAP 7.5-325MG 1 EACH TAB PO PRN (08:04)
[2024-10-02 08:18] LABS: HCT 28.6 % (37.2-46.3); HGB 9.5 g/dL (12.0-15.0); MCH 30.4 pg (27.0-32.0); MCHC 33.2 g/dL (32.0-37.0); MCV 91.4 FL (80.0-97.0); Mean Platelet Volume 11.6 FL (9.5-12.2); NRBC Per 100 WBC 0 X 10*3/uL (0.00-0.01); Platelet Count 178 X 10*3/uL (140-440); RBC 3.13 X 10*6/uL (4.10-5.20); RDW 12.7 % (11.5-14.5)
[2024-10-02 08:28] LABS: Blood Urea Nitrogen 14.1 mg/dL (9.0-27.0); Calcium 8.6 mg/dL (8.7-10.3); Carbon Dioxide 27.4 mmol/L (21.6-31.8); Chloride 106 mmol/L (96-109); Glucose 125 mg/dL (70-110); Magnesium 1.8 mg/dL (1.5-2.4); Potassium 4.3 mmol/L (3.5-5.5); Sodium 140 mmol/L (135-145)
[2024-10-02] MEDS ORDERED: amLODIPine 5 MG TAB PO SCH (09:00)
[2024-10-02 09:28] LABS: Basophils # (A) 0.01 X 10*3/uL (0.00-0.10); Basophils % (A) 0.1 %; Eosinophils # (A) 0.01 X 10*3/uL (0.04-0.35); Eosinophils % (A) 0.1 %; Lymphocytes # (A) 0.86 X 10*3/uL (0.90-5.00); Lymphocytes % (A) 8.7 %; Monocytes % (A) 16.2 %; Neutrophils # (A) 7.36 X 10*3/uL (1.80-7.70); Neutrophils % (A) 74.3 %; RBC Morphology Normal (Normal)
[2024-10-02] MEDS: BRIMONIDINE TARTRATE 0.2% DROPS 5 ML BTL BOTH EYES SCH (09:40)
[2024-10-02] MEDS: ARTIFICIAL TEARS-HYPROMELLOSE DROPS 15 ML BTL BOTH EYES PRN (09:40)
[2024-10-02] MEDS: MULTIVITAMINS, THERA 1 EACH TAB PO SCH (09:40)
[2024-10-02] MEDS: CHOLECALCIFEROL 25 MCG (1000 IU) TABLET PO SCH (09:41)
[2024-10-02] MEDS: RIVAROXABAN 10 MG TAB PO SCH (09:41)
[2024-10-02] MEDS: FAMOTIDINE 20 MG TAB PO SCH (09:41)
--- NOTE | 2024-10-02 09:44 | P.PN ---
Subjective Progress Note Date: 10/02/24 Principal diagnosis: Status post direct anterior left total hip arthroplasty Patient examined at bedside today she is resting in her hospital chair. She did very well with physical therapy. She has been urinating with no issues since surgery. Blood pressure was noted to be a little low yesterday and today, she is getting a fluid bolus at this time. She is having no nausea or vomiting at this time, denies fevers or chills. Objective - Vital Signs Vital signs: Vital Signs Temp 98.2 F 10/02/24 07:46 Pulse 84 10/02/24 07:46 Resp 18 10/02/24 07:46 BP 99/62 10/02/24 07:46 Pulse Ox 92 L 10/02/24 07:46 FiO2 Intake & Output 10/01/24 10/02/24 10/02/24 18:59 06:59 18:59 Intake Total 1051 1799 Output Total 150 Balance 901 1799 Weight 71.8 kg Intake: IV 1051 Intake, IV Titration 1799 Amount Lactated Ringers 1,000 ml 750 @ 75 mls/hr IV .[id number] [facility] Rx#:[id number] Lactated Ringers 1,000 ml 999 @ 999 mls/hr IV .Q1H1M ONE Rx#:[id number] ceFAZolin 2 gm In 50 Dextrose 5% in Water 50 ml @ 100 mls/hr IVPB Q8HR [facility] Rx#:[id number] Output: Estimated Blood Loss 150 Other: Voiding Method Bedside Commode Toilet # Voids 1 3 - Exam Left lower extremity: Incision is clean, dry, and intact. The exofin fusion tape is in good condition. There is minimal soft tissue swelling and ecchymosis surrounding the medial and lateral aspects of the incision. Calf is soft, no tenderness with palpation. Plantar flexion, dorsiflexion, EHL, FHL are intact. Sensory exam to light touch throughout the extremity is intact, dorsal pedis pulses 2+. - Labs CBC & Chem 7: 10/02/24 02:53 10/02/24 02:53 Labs: Abnormal Lab Results - Last 24 Hours (Table) 10/02/24 10/02/24 Range/Units 02:53 02:53 RBC 3.13 L (4.10-5.20) X 10*6/uL Hgb 9.5 L (12.0-15.0) g/dL Hct 28.6 L (37.2-46.3) % Immature Gran # 0.06 H (0.00-0.04) X 10*3/uL Lymphocytes # 0.86 L (0.90-5.00) X 10*3/uL Monocytes # 1.60 H (0.20-1.00) X 10*3/uL Eosinophils # 0.01 L (0.04-0.35) X 10*3/uL BUN/Creatinine Ratio 23.50 H (12.00-20.00) Ratio Glucose 125 H (70-110) mg/dL Calcium 8.6 L (8.7-10.3) mg/dL Assessment and Plan Assessment: Postoperative day #1 status post direct anterior left total hip arthroplasty Acute blood loss anemia, expected surgical outcome Hypotension Plan: Pain control, plan for discharge home on [place] 7.5 mg / 325 mg. Will also utilize stool softeners DVT prophylaxis, Eliquis 2.5 mg for 30 days Ferrous sulfate 325 mg daily for anemia at discharge Wound care instructions discussed, this to include showering and bandaging instructions Home PT/nursing after discharge Medical recommendations appreciated Discharge planning: Pending patient's blood pressure continues to improve plan for discharge home today Time with Patient: Less than 30
--- NOTE | 2024-10-02 09:48 | P.DS ---
Providers Date of admission: 10/01/2024 Expected date of discharge: 10/02/24 Attending physician: Jerry Aguilar Consults: 10/01/24 09:23 Consult Physician Routine Consulting Provider: Koffi Cárdenas Consult Reason/Comments: medical management Do you want consulting provider notified?: Yes Primary care physician: Jaymie [facility] Course: Date of admission: 10/01/2024 Date of discharge: 10/02/2024 Admission diagnosis: Status post direct anterior left total hip arthroplasty Discharge diagnosis: Same Attending physician: Dr. Aguilar Surgical procedures: Direct anterior left total hip arthroplasty Brief history: Patient is a 63-year-old female with a history of progressive primary left hip osteoarthritis. At this point patient has failed conservative treatment measures and has opted to proceed with a elective direct anterior left total hip arthroplasty. Hospital course: Details of patient's surgery can be found in operative report. Patient tolerated the procedure well and was subsequently transported to orthopedic floor. Patient's orthopeidc and medical care was provided daily. Patient had daily laboratory tests performed for evaluation of overall blood counts. Patient had daily physical therapy to include strengthening range of motion as well as education with walker ambulation. Patient was treated with Xarelto for their postoperative DVT prophylaxis during their inpatient stay. Patient was noted to have a relatively uneventful postoperative course. Patient reported satisfactory pain control with oral pain medications by postoperative day 0. Patient showed satisfactory progress with physical therapy. Patient moved steadily through the program and had no difficulty meeting the goals by postoperative day 1. Given patient's otherwise satisfactory course and having met physical therapy goals, plan is to discharge patient home on postoperative day 1. Discharge condition/disposition: Patient will be discharged home in stable condition. Discharge medications: Instructions are given on resumption of patient's normal daily medications per primary care recommendation, in addition patient will be prescribed [place] 7.5 mg / 325 mg, senna S, Eliquis 2.5 mg, ferrous sulfate 325 mg. Discharge instructions: 1. Wound care and infection precautions, keep incision dry and covered while showering, no lotions, creams, moisturizers. No soaking, tubs, pools, hottubs. Do not scrub over the incision. 2. Weight-bear as tolerated with walker / cane until follow-up. 3. Ice and elevate when necessary. Do not exceed 20 minutes per hour with ice pack. 4. Utilize compression sleeve until seen at first follow up appointment. 5. Visiting nursing care. 6. Home physical therapy . 7. Pain meds and anticoagulants per prescription. 8. Pain medication has potential to cause constipation. Increase oral fluid and fiber intake. Contact primary care provider if you have not had a bowel movement within 48 hours after discharge 9. No anti-inflammatory medication until discussed at first post operative visit, this including Motrin, Aleve, Mobic, Diclofenac. 10. Follow up in office at 2 weeks postop with Hector Lackey PA-C/Imer Sena 11. Follow up with your primary care doctor 7-10 days after discharge. 12. Contact [facility] with any questions, . Procedures: Direct anterior left total hip arthroplasty Patient Condition at Discharge: Good Plan - Discharge Summary Discharge Rx Participant: Yes New Discharge Prescriptions: New Apixaban [Eliquis] 2.5 mg PO BID #60 tab Ferrous Sulfate [Iron (65 MG Elemental)] 325 mg PO DAILY #30 tab Sennosides/Docusate Sodium [Senna-S 8.6-50 mg Tablet] 2 each PO DAILY PRN #30 tablet PRN Reason: Constipation HYDROcodone/APAP 7.5-325MG [[place] 7.5] 1 each PO Q4HR PRN #42 tab PRN Reason: Pain No Action Cholecalciferol [Vitamin D3 (25 Mcg = 1000 Iu)] 25 mcg PO DAILY Multivitamins, Thera [Multivitamin (formulary)] 1 tab PO DAILY amLODIPine [Norvasc] 5 mg PO DAILY Levothyroxine Sodium 88 mcg PO DAILY Brimonidine Tartrate [Lumify] 1 drop BOTH EYES DAILY Carboxymethylcellulose Sodium [Refresh Tears] 1 drop BOTH EYES DIRECTED PRN PRN Reason: dry eyes hydrOXYzine HCL [Atarax] 50 mg PO HS Ibuprofen [Motrin] 600 mg PO Q8HR PRN PRN Reason: Pain traMADol HCL 50 mg PO BID PRN PRN Reason: Pain Discharge Medication List Cholecalciferol [Vitamin D3 (25 Mcg = 1000 Iu)] 25 mcg PO DAILY 02/08/22 [History] Ibuprofen [Motrin] 600 mg PO Q8HR PRN 02/08/22 [History] Levothyroxine Sodium 88 mcg PO DAILY 02/08/22 [History] Multivitamins, Thera [Multivitamin (formulary)] 1 tab PO DAILY 02/08/22 [History] amLODIPine [Norvasc] 5 mg PO DAILY 02/08/22 [History] Brimonidine Tartrate [Lumify] 1 drop BOTH EYES DAILY 09/20/24 [History] Carboxymethylcellulose Sodium [Refresh Tears] 1 drop BOTH EYES DIRECTED PRN 09/20/24 [History] hydrOXYzine HCL [Atarax] 50 mg PO HS 09/20/24 [History] traMADol HCL 50 mg PO BID PRN 09/20/24 [History] Apixaban [Eliquis] 2.5 mg PO BID #60 tab 10/02/24 [Rx] Ferrous Sulfate [Iron (65 MG Elemental)] 325 mg PO DAILY #30 tab 10/02/24 [Rx] HYDROcodone/APAP 7.5-325MG [Plano 7.5] 1 each PO Q4HR PRN #42 tab 10/02/24 [Rx] Sennosides/Docusate Sodium [Senna-S 8.6-50 mg Tablet] 2 each PO DAILY PRN #30 tablet 10/02/24 [Rx] Follow up Appointment(s)/Referral(s): Imer Perry PAC [PHYSICIAN [employer] ADMINISTRATOR] - 2 Weeks Patient Instructions/Handouts: Anterior Hip Replacement (GEN) Activity/Diet/Wound Care/Special Instructions: Orthopedic Discharge Instructions: 1. Wound care and infection precautions, keep incision dry and covered while showering, no lotions, creams, moisturizers. No soaking, pools, hot tubs. Do not scrub over incision. 2. Weight-bear as tolerated with walker / cane until follow-up. 3. Ice and elevate when necessary. Do not exceed 20 minutes per hour with ice pack. 4. Utilize compression sleeve until seen at first follow up appointment. 5. Pain meds and anticoagulants per prescription. 6. Pain medication has potential to cause constipation. Increase oral fluid and fiber intake. Contact primary care provider if you have not had a bowel movement within 48 hours after discharge. 7. No anti-inflammatory medication until discussed at first post operative visit, this including Motrin, Aleve, Mobic, Diclofenac. 8. Follow up in office at 2 weeks postop with Hector Lackey PA-C / Imer Perry PA-C 9. Follow up with your primary care doctor 7-10 days after discharge. 10. Contact [facility] with any questions, . Keep incision clean, dry, intact. While showering, cover fusion tape with Saran wrap. Keep fusion tape on until follow-up appointment in office in 2 weeks. Discharge Disposition: HOME WITH HOME HEALTH SERVICES
--- NOTE | 2024-10-02 10:47 | P.PN ---
Subjective Progress Note Date: 10/02/24 Hospital Course: Patient is a very pleasant 63-year-old female with a past medical history of hypertension, hypothyroidism, Raynaud's disease, and osteoarthritis. She is currently hospitalized under orthopedic surgery team status post elective left total hip arthroplasty. Surgical procedure was completed by Dr. Aguilar secondary to severe osteoarthrosis of left hip. We were consulted for medical management throughout hospitalization. Physical exam: Patient seen and fully evaluated at bedside this morning. She reports mild to moderate pain currently rating pain 3-4 out of 10 at this time. She reports that she was able to ambulate with physical therapy and complete stairs without difficulties and has been doing the exercises that physical therapy left for her to do. Patient did have a drop in her hemoglobin from 14.4 down to 9.5. She reports when she had her labs drawn on 09/23 she was fasting so hemoglobin may have been slightly elevated due to dehydration. Patient has no active bleeding noted, no hematoma at surgical site, and is asymptomatic denying any dizziness, lightheadedness, chest pain, palpitations, shortness of breath or any other complaints at this time. She denies experiencing any postoperative nausea or vomiting, tolerating oral intake, and reports urinating without difficulties. Patient reports she is passing flatus but has not had a bowel movement since surgical procedure. Patient to be discharged home on MiraLAX 17 g daily. Vital signs reviewed and stable. General: Nontoxic, no distress and appears stated age. Derm: Skin warm and dry, normal coloration for ethnicity. Head: Atraumatic, normocephalic and symmetric. Eyes: EOM's intact, no lid lag, and anicteric sclera Mouth: no lip lesions, mucus membranes moist Cardiovascular: regular rate and rhythm with normal S1S2, no murmur, positive posterior tibial pulses bilaterally, and cap refill < 2 seconds. Lungs: Respirations even, regular, and unlabored on room air. Lungs CTA bilaterally, no rhonchi, no rales, no wheezing, and no accessory muscle usage. Abdominal: soft, nontender to palpation, no guarding, no appreciable organomegaly Ext: Movement and sensation intact.. No gross muscle atrophy, no edema, no contractures. Postoperative dressing in place left lateral hip. Neuro: Speech clear, face symmetrical and CN II-XII grossly intact with no noted focal neuro deficits Psych: Alert and oriented to person, place, time, and situation. Appropriate and pleasant affect. Assessment and Plan of Care: Status post left total hip arthroplasty -Management per primary admitting orthopedic surgery team including DVT prophylaxis, pain management, wound/dressing management, weightbearing, and PT/OT. -Patient currently on DVT prophylaxis with Xarelto 10 mg daily. Acute postoperative blood loss anemia -Postoperative labs reviewed showing acute postoperative blood loss anemia with postoperative hemoglobin of 9.5 and preoperative hemoglobin of 14.4 drawn on 08/26. -Patient did have a larger than expected drop in her hemoglobin from 14.4 down to 9.5. She reports when she had her preoperative labs drawn on 09/23 she was fasting so hemoglobin may have been slightly elevated due to hemoconcentration. Patient is not hypotensive or tachycardic and has no active bleeding noted, no hematoma at surgical site, and is asymptomatic denying any dizziness, lig htheadedness, chest pain, palpitations, shortness of breath or any other complaints at this time. -Secondary to no active signs of bleeding and no complaints, patient is asymptomatic anemia and no need for further intervention at this time. Patient is being discharged by orthopedic surgery team today, patient to be sent with prescription to have repeat CBC completed in 3 days with results to be sent to her PCP and orthopedic surgeon for follow-up and management. Hypertension -Monitor vital signs and continue daily medication regimen with amlodipine 5 mg daily. Hypothyroidism -Continue daily medication regimen with levothyroxine 88 mcg daily. History of cataracts status post removal -Continue Lumify eyedrops 1 drop both eyes daily. Data and imaging reviewed: -Vital signs reviewed. Blood pressure 110/70, heart rate 80, respiratory rate 16, temp 97.3 F, and SpO2 of 98% on room air. -Postoperative labs reviewed showing acute postoperative blood loss anemia with postoperative hemoglobin of 9.5 and preoperative hemoglobin of 14.4 drawn on 09/23/2024. BMP unremarkable. Blood glucose 125. Thank you for allowing us to participate in the care of this pleasant patient. Do not hesitate to contact us with questions. Someone can be reached from the [facility] hospitalist group all hours of the day at [phone] or via [employer]. Patient was seen independently by Nurse Practitioner. This document was prepared using [employer] dictation software. Please allow for errors in statement clerk while rare they do occur. Joshua Norman NP rendered care for this patient independently, reviewed the findings and plan as documented in the note above and agree with plan. I did not physically speak with or examine the patient on this date. . Objective - Vital Signs Vital signs: Vital Signs Temp 98.2 F 10/02/24 07:46 Pulse 84 10/02/24 07:46 Resp 18 10/02/24 07:46 BP 99/62 10/02/24 07:46 Pulse Ox 92 L 10/02/24 07:46 FiO2 Intake & Output 10/01/24 10/02/24 10/02/24 18:59 06:59 18:59 Intake Total 1051 1799 Output Total 150 Balance 901 1799 Weight 71.8 kg Intake: IV 1051 Intake, IV Titration 1799 Amount Lactated Ringers 1,000 ml 750 @ 75 mls/hr IV .[id number] [facility] Rx#:[id number] Lactated Ringers 1,000 ml 999 @ 999 mls/hr IV .Q1H1M [facility] Rx#:[id number] ceFAZolin 2 gm In 50 Dextrose 5% in Water 50 ml @ 100 mls/hr IVPB Q8HR [facility] Rx#:[id number] Output: Estimated Blood Loss 150 Other: Voiding Method Bedside Commode # Voids 1 3 - Labs CBC & Chem 7: 10/02/24 02:53 10/02/24 02:53 Labs: Abnormal Lab Results - Last 24 Hours (Table) 10/02/24 10/02/24 Range/Units 02:53 02:53 RBC 3.13 L (4.10-5.20) X 10*6/uL Hgb 9.5 L (12.0-15.0) g/dL Hct 28.6 L (37.2-46.3) % BUN/Creatinine Ratio 23.50 H (12.00-20.00) Ratio Glucose 125 H (70-110) mg/dL Calcium 8.6 L (8.7-10.3) mg/dL
== END 2024-10-02 13:06 | disposition home health service (06) ==
LOC: OR 05:53 → 4SSUR 09:22 → OR 10-02 13:06
PROVIDERS: ATTEND Orthopaedic Surgery
DX: M16.12 Unilateral primary osteoarthritis, left hip (principal); I73.00 Raynaud's syndrome without gangrene; I10 Essential (primary) hypertension; E03.9 Hypothyroidism, unspecified; Z90.89 Acquired absence of other organs; Z96.642 Presence of left artificial hip joint; Z48.810 Encounter for surgical aftercare following surgery on the sense organs; Z80.1 Family history of malignant neoplasm of trachea, bronchus and lung; Z88.2 Allergy status to sulfonamides; Z88.1 Allergy status to other antibiotic agents; Z79.01 Long term (current) use of anticoagulants; Z79.890 Hormone replacement therapy; Z79.899 Other long term (current) drug therapy
CPT/HCPCS: 97161; 64473; 80048; 83735; 85025; 73501; 27130; C1776; J2250; J1100; J0690 ×2; J2405; J1171